=== PATIENT | male | born 1995 | race American Indian/Alaskan Native ===

== ENCOUNTER 2017-02-22 21:39 | Emergency (ER) | payer SELFPAY ==
[2017-02-22 22:54] LABS: Basophils % (Auto) 0.5 % (0.0-1.8); Eosinophils % (Auto) 2.7 % (0.0-4.3); Hematocrit 48.9 % (35.5-45.6); Hemoglobin 15.7 gm/dl (11.8-15.2); Mean Corpuscular HGB Conc 32 % (32-34); Mean Corpuscular Hemoglobin 27 pg (28-32); Mean Corpuscular Volume 83 fl (84-94); Platelet Count 267 K/mm3 (140-440); Red Blood Count 5.93 M/mm3 (3.65-5.03); Red Cell Distribution Width 14.1 % (13.2-15.2); White Blood Count 8.8 K/mm3 (4.5-11.0)
[2017-02-22 23:09] LABS: Anion Gap 21 mmol/L; Blood Urea Nitrogen 10 mg/dL (9-20); Calcium 9.5 mg/dL (8.4-10.2); Carbon Dioxide 25 mmol/L (22-30); Chloride 98.4 mmol/L (98-107); Glucose 86 mg/dL (75-100); Potassium 4.1 mmol/L (3.6-5.0); Sodium 140 mmol/L (137-145)
[2017-02-23 02:39] VITALS: BP 121/78
[2017-02-23] MEDS ORDERED: ATROVENT IH ONE ×2 (04:58→05:07)
[2017-02-23] MEDS ORDERED: PROVENTIL IH ONE ×2 (04:58→05:06)
--- NOTE | 2017-02-23 05:50 | Emergency Department Report ---
ED Chest Pain HPI - General Chief Complaint: Chest Pain Stated Complaint: SOB, CHEST TIGHTNESS, THROAT PAIN Time Seen by Provider: 02/23/17 02:46 Source: patient Mode of arrival: Ambulatory Limitations: No Limitations - History of Present Illness Initial Comments: 21 yo male with a past medical history childhood asthma presents to the with complaints of chest tightness and shortness of breath. Symptoms are intermittent for the last week. No aggravating or alleviating factors reported. Patient states he does smoke Black and milds but quit 1 week ago. He denies nausea, vomiting, cough, cold symptoms, recent travel, history of PE/ DVT, or cocaine use. Patient denies that he has audible wheezing and does not have a albuterol inhaler currently. Severity scale (0 -10): 4 - Related Data Previous Rx's Medication Instructions Recorded Last Taken Type ALBUTEROL Inhaler [ProAir HFA 2 puff IH QID PRN #1 inhalation 02/23/17 Unknown Rx Inhaler] Inhaler, Assist Devices [Space 1 each MC PRN #1 spacer 02/23/17 Unknown Rx Chamber Plus] Allergies Allergy/AdvReac Type Severity Reaction Status Date / Time No Known Allergies Allergy Verified 02/22/17 22:06 Heart Score - HEART Score History: Slightly suspicious EKG: Normal Age: < 45 Risk factors: No known risk factors Troponin: < normal limit HEART Score: 0 ED Review of Systems ROS: Stated complaint: SOB, CHEST TIGHTNESS, THROAT PAIN Other details as noted in HPI Comment: All other systems reviewed and negative Other: Constitutional: No fevers chills Eyes: No eye pain visual changes ENT: No ear pain or throat pain Neck: Denies pain Respiratory: Denies cough wheezing Cardiovascular: Denies palpitations, syncope GI: Denies abdominal pain, nausea, vomiting, diarrhea : Denies dysuria Musculoskeletal: Denies back pain Skin: Denies rash, lesions, erythema Neurologic: Denies headache, numbness, weakness Psychiatric: Denies suicidal ideation, hallucinations ED Past Medical Hx - Past Medical History Previous Medical History?: No - Surgical History Past Surgical History?: No - Social History Smoking Status: Never Smoker Substance Use Type: None - Medications Home Medications: Home Medications Medication Instructions Recorded Confirmed Last Taken Type ALBUTEROL Inhaler [ProAir HFA 2 puff IH QID PRN #1 inhalation 02/23/17 Unknown Rx Inhaler] Inhaler, Assist Devices [Space 1 each PRN #1 spacer 02/23/17 Unknown Rx Chamber Plus] ED Physical Exam - General Limitations: No Limitations - Other Other exam information: General: No limitations, patient is alert in no acute distress Head exam: Atraumatic, normocephalic Eyes exam: Normal appearance, ENT: Moist mucous membrane, normal oropharynx Neck exam: Normal inspection, full range of motion, no meningismus nontender Respiratory exam: Clear to auscultation bilateral, no wheezes, rales, crackles Cardiovascular: Normal rate and rhythm, normal heart sounds, chest wall nontender Abdomen: Soft, nondistended, and nontender, with normal bowel sounds, no rebound, or guarding Extremity: Full range of motion normal inspection no deformity or edema Back: Normal Inspection, full range of motion, no tenderness, no calf tenderness or edema Neurologic: Alert, oriented x3, cranial nerves intact, no motor or sensory deficit Psychiatric: normal affect, normal mood Skin: Warm, dry, intact ED Course Vital Signs 02/22/17 02/23/17 22:07 02:35 Temperature 98 F 98.2 F Pulse Rate 88 60 Respiratory 16 18 Rate Blood Pressure 132/86 Blood Pressure 121/78 [Left] O2 Sat by Pulse 100 100 Oximetry - Reevaluation(s) Reevaluation #1: 02/23/17 05:48 Patient's initial peak flow was 275 with predicted of 500. After receiving albuterol 5 mg and Atrovent 1 mg peak flow is now 500 and patient reports feeling much better. He states this chest tightness and shortness of breath have now resolved. DONTRELL score - Dontrell Score Age > 65: (0) No Aspirin use within the Past 7 Days: (0) No 3 or more CAD Risk Factors: (0) No 2 or more Angina events in past 24 hrs: (0) No Known CAD with more than 50% Stenosis: (0) No Elevated Cardiac Markers: (0) No ST Deviation Greater than 0.5mm: (0) No DONTRELL Score: 0 ED Medical Decision Making - Lab Data Result diagrams: 02/22/17 22:25 02/22/17 22:25 Lab Results 02/22/17 02/22/17 02/23/17 Range/Units 22:25 22:25 00:58 WBC 8.8 (4.5-11.0) K/mm3 RBC 5.93 H (3.65-5.03) M/mm3 Hgb 15.7 H (11.8-15.2) gm/dl Hct 48.9 H (35.5-45.6) % MCV 83 L (84-94) fl MCH 27 L (28-32) pg MCHC 32 (32-34) % RDW 14.1 (13.2-15.2) % Plt Count 267 (140-440) K/mm3 Lymph % (Auto) 35.7 H (13.4-35.0) % [place] % (Auto) 8.2 H (0.0-7.3) % Eos % (Auto) 2.7 (0.0-4.3) % Baso % (Auto) 0.5 (0.0-1.8) % Lymph # 3.1 (1.2-5.4) K/mm3 [place] # 0.7 (0.0-0.8) K/mm3 Eos # 0.2 (0.0-0.4) K/mm3 Baso # 0.0 (0.0-0.1) K/mm3 Seg Neutrophils % 52.9 (40.0-70.0) % Seg Neutrophils # 4.7 (1.8-7.7) K/mm3 Sodium 140 (137-145) mmol/L Potassium 4.1 (3.6-5.0) mmol/L Chloride 98.4 (98-107) mmol/L Carbon Dioxide 25 (22-30) mmol/L Anion Gap 21 mmol/L BUN 10 (9-20) mg/dL Creatinine 0.8 (0.8-1.5) mg/dL Estimated GFR > 60 ml/min BUN/Creatinine Ratio 12.50 % Glucose 86 (75-100) mg/dL Calcium 9.5 (8.4-10.2) mg/dL Troponin T < 0.010 < 0.010 (0.00-0.029) ng/mL - EKG Data -: EKG Interpreted by Me (nsr rate 69, no stemi) - EKG Data 02/23/17 05:51 Repeat EKG unchanged. Sinus no signs of ST elevation or T inv - Radiology Data Radiology results: image reviewed (chest x-ray PA and lateral, no acute finding) - Medical Decision Making Patient's symptoms likely secondary to asthma. Positive improvement of symptoms with nebulizers. Albuterol will be prescribed. Outpatient follow-up will be encouraged - Differential Diagnosis asthma, PE, atypical chest pain, pneumothorax, pleurisy, [place] Critical Care Time: No Critical care attestation.: If time is entered above; I have spent that time in minutes in the direct care of this critically ill patient, excluding procedure time. ED Disposition Clinical Impression: Acute asthma exacerbation Disposition: TO HOME OR SELFCARE Is pt being admited?: No Does the pt Need Aspirin: No Condition: Stable Instructions: Asthma (ED) Additional Instructions: Use inhaler as needed. I recommend that you continue to not smoke. Follow-up with primary care doctor or clinic. Prescriptions: ALBUTEROL Inhaler [ProAir HFA Inhaler] 2 puff IH QID PRN #1 inhalation PRN Reason: Shortness Of Breath Inhaler, Assist Devices [Space Chamber Plus] 1 each MC PRN #1 spacer Referrals: [facility] [Provider Group] - 3-5 Days RUBINA CELIS MD [Staff Physician] - 3-5 Days Time of Disposition: 05:51
--- NOTE | 2017-02-23 09:26 | XRay Report ---
Chest 2 views: History: Chest pain. Findings: Normal cardiomediastinal silhouette. Trachea is midline. No consolidation, pneumothorax or pleural effusion. Impression: No acute cardiopulmonary findings.
== END 2017-02-23 06:18 | disposition home or self-care (01) ==
LOC: ED 21:39
DX: J45.901 Unspecified asthma with (acute) exacerbation (principal)
CPT/HCPCS: 36415; 71020; 80048; 84484; 85025; 93005; 93010; 94640; 99284

== ENCOUNTER 2017-12-28 20:57 | Emergency (ER) | payer SELFPAY ==
[2017-12-28 21:48] VITALS: BP 117/72
[2017-12-28] MEDS ORDERED: ZOFRAN ODT ONE (22:06)
[2017-12-28] MEDS ORDERED: ZOFRAN ODT PO ONE (22:11)
[2017-12-28 22:16] LABS: Basophils # (Auto) 0.1 K/mm3 (0.0-0.1); Basophils % (Auto) 0.6 % (0.0-1.8); Eosinophils # (Auto) 0.1 K/mm3 (0.0-0.4); Eosinophils % (Auto) 0.7 % (0.0-4.3); Hemoglobin 14.5 gm/dl (11.8-15.2); Lymphocytes # (Auto) 2.5 K/mm3 (1.2-5.4); Lymphocytes % (Auto) 29.3 % (13.4-35.0); Mean Corpuscular HGB Conc 33 % (32-34); Mean Corpuscular Hemoglobin 27 pg (28-32); Mean Corpuscular Volume 82 fl (84-94); Monocytes # (Auto) 0.6 K/mm3 (0.0-0.8); Monocytes % (Auto) 6.7 % (0.0-7.3); Platelet Count 261 K/mm3 (140-440); Red Blood Count 5.33 M/mm3 (3.65-5.03); Red Cell Distribution Width 14.4 % (13.2-15.2)
[2017-12-28 22:29] LABS: BUN/Creatinine Ratio 10; Blood Urea Nitrogen 8 mg/dL (9-20); Calcium 9.7 mg/dL (8.4-10.2); Hemolysis Index 10
== END 2017-12-28 21:57 | disposition left against medical advice (07) ==
LOC: ED 20:57
DX: R42 Dizziness and giddiness (principal); R11.11 Vomiting without nausea; Z53.21 Procedure and treatment not carried out due to patient leaving prior to being seen by health care provider
CPT/HCPCS: 36415; 80048; 85025; 93005; 93010; Q0162

== ENCOUNTER 2018-08-27 00:22 | Emergency (ER) | payer OTHER ==
[2018-08-27 00:29] VITALS: BP 121/75
[2018-08-27] MEDS ORDERED: NACL 0.9% 1000 ML 1,000 ML IV ONE ×2 (00:29→05:55)
[2018-08-27 00:41] LABS: Basophils % (Auto) 0.3 % (0.0-1.8); Eosinophils # (Auto) 0.2 K/mm3 (0.0-0.4); Eosinophils % (Auto) 1.4 % (0.0-4.3); Hematocrit 45.7 % (35.5-45.6); Hemoglobin 15.7 gm/dl (11.8-15.2); Lymphocytes # (Auto) 1.4 K/mm3 (1.2-5.4); Lymphocytes % (Auto) 8.4 % (13.4-35.0); Mean Corpuscular HGB Conc 34 % (32-34); Mean Corpuscular Volume 82 fl (84-94); Monocytes % (Auto) 6.2 % (0.0-7.3); Platelet Count 229 K/mm3 (140-440); Red Blood Count 5.56 M/mm3 (3.65-5.03); Red Cell Distribution Width 14.2 % (13.2-15.2)
[2018-08-27 00:59] LABS: Alanine Aminotransferase 26 units/L (7-56); Albumin 4.8 g/dL (3.9-5); BUN/Creatinine Ratio 18; Blood Urea Nitrogen 14 mg/dL (9-20); Hemolysis Index 12
[2018-08-27] MEDS ORDERED: ZOFRAN IV ONE (04:00)
--- NOTE | 2018-08-27 04:24 | Emergency Department Report ---
ED Abdominal Pain HPI - General Chief Complaint: Nausea/Vomiting/Diarrhea Stated Complaint: N/V Time Seen by Provider: 08/27/18 03:57 Source: patient Mode of arrival: Ambulatory Limitations: No Limitations - History of Present Illness Initial Comments: 23-year-old male presents to the emergency room AND vomiting that started about p.m. Patient reports that he has family members with similar symptoms. Patient admits to nausea and vomiting greater than 7 times. Patient report he last vomited 20 minutes prior to me evaluating. Patient reports he last ate about 5 PM. He is able to drink Gatorade denies any diarrhea. He admits to abdominal pain only with vomiting. Hhe denies smoking any cannabis today. He reports a past medical history of asthma currently takes no medications on a daily basis and has no known drug allergies. -: During the night Time: 20:00 Location: diffuse Radiation: none Migration to: no migration Severity scale (0 -10): 7 Quality: stabbing, sharp Consistency: intermittent Improves With: nothing Worsens With: vomiting Context: sick contacts Associated Symptoms: nausea, vomiting. denies: diarrhea, constipation, dysuria - Related Data Previous Rx's Medication Instructions Recorded Last Taken Type ALBUTEROL Inhaler (OR & NICU) 2 puff IH QID PRN #1 inhalation 02/23/17 Unknown Rx [ProAir HFA Inhaler] Inhaler, Assist Devices [Space 1 each MC PRN #1 spacer 02/23/17 Unknown Rx Chamber Plus] Allergies Allergy/AdvReac Type Severity Reaction Status Date / Time No Known Allergies Allergy Verified 02/22/17 22:06 ED Review of Systems ROS: Stated complaint: N/V Other details as noted in HPI Comment: All other systems reviewed and negative Gastrointestinal: abdominal pain, nausea, vomiting ED Past Medical Hx - Past Medical History Previous Medical History?: Yes Hx Arthritis: Yes - Surgical History Past Surgical History?: No - Social History Smoking Status: Never Smoker Substance Use Type: None - Medications Home Medications: Home Medications Medication Instructions Recorded Confirmed Last Taken Type ALBUTEROL Inhaler (OR & NICU) 2 puff IH QID PRN #1 inhalation 02/23/17 Unknown Rx [ProAir HFA Inhaler] Inhaler, Assist Devices [Space 1 each MC PRN #1 spacer 02/23/17 Unknown Rx Chamber Plus] ED Physical Exam - General Limitations: No Limitations General appearance: alert, in no apparent distress - Head Head exam: Present: atraumatic, normocephalic - Eye Eye exam: Present: EOMI - ENT ENT exam: Present: mucous membranes moist - Neck Neck exam: Present: normal inspection - Respiratory Respiratory exam: Present: normal lung sounds bilaterally. Absent: respiratory distress - Cardiovascular Cardiovascular Exam: Present: regular rate, normal rhythm. Absent: systolic murmur, diastolic murmur, rubs, gallop - GI/Abdominal GI/Abdominal exam: Present: soft, normal bowel sounds. Absent: distended, tenderness - Extremities Exam Extremities exam: Present: normal inspection, full ROM - Back Exam Back exam: Present: normal inspection, full ROM - Neurological Exam Neurological exam: Present: alert, oriented X3 - Psychiatric Psychiatric exam: Present: normal affect, normal mood - Skin Skin exam: Present: warm, dry, intact, normal color. Absent: rash ED Course Vital Signs 08/27/18 00:26 Temperature 98.0 F Pulse Rate 90 Respiratory 18 Rate Blood Pressure 121/75 O2 Sat by Pulse 100 Oximetry ED Medical Decision Making - Lab Data Result diagrams: 08/27/18 00:33 08/27/18 00:33 - Radiology Data CT abdomen and pelvis with contrast impression no acute intra-abdominal abnormalities. - Medical Decision Making Patient has been evaluated by this provider in fast track. CBC CMP and CT with contrast has been ordered. Patient has a elevated white count of 16.7 and elevated glucose of 123. Patient will be giveniv normal saline and IV zofran Critical care attestation.: If time is entered above; I have spent that time in minutes in the direct care of this critically ill patient, excluding procedure time. ED Disposition Clinical Impression: Nausea and vomiting Qualifiers: Vomiting type: unspecified Vomiting Intractability: intractable Qualified Code(s): R11.2 - Nausea with vomiting, unspecified Disposition: DC-01 TO HOME OR SELFCARE Is pt being admited?: No Does the pt Need Aspirin: No Condition: Stable Instructions: Acute Nausea and Vomiting (ED) Additional Instructions: Please increase your fluid intake and thinks her diet as tolerated. Follow up with a primary care provider if his symptoms persist or gets worse. I have listed their information below for your convenience. Referrals: CITLALLI SUMNER MD [Primary Care Provider] - 3-5 Days [facility] [Provider Group] - 3-5 Days Forms: Work/School Release Form(ED), Accompanied Note
--- NOTE | 2018-08-27 05:16 | Cat Scan Report ---
PROCEDURE: CT ABDOMEN PELVIS W CON TECHNIQUE: Computerized axial tomography of the abdomen and pelvis was performed after the IV inject ion of iodinated nonionic contrast. CT DOSE LENGTH PRODUCT: mGycm HISTORY: abd pain, n/v wbc 16.7 COMPARISONS: None . FINDINGS: Visualized lower thorax: No significant abnormality. Liver: Normal size and attenuation. Spleen: Normal size and attenuation. Gallbladder and biliary system: Normal. Pancreas: Normal. Adrenals: Normal. Kidneys: Normal. GI tract: There is no bowel obstruction, colitis or enteritis. The appendix is normal. . Lymph nodes and mesentery: Normal. Vasculature: Normal.. Bladder: Normal. Reproductive organs: Normal. Peritoneum: There is no ascites or free air, abscess or adenopathy.. Musculoskeletal structures: No significant abnormality. IMPRESSION: There is no acute intra-abdominal abnormality. . This document is electronically signed by Naeem Lucia MD., August 27 2018 05:13:44 AM ET
== END 2018-08-27 06:27 | disposition home or self-care (01) ==
LOC: ED 00:22
DX: R10.84 Generalized abdominal pain (principal); R11.2 Nausea with vomiting, unspecified; M19.90 Unspecified osteoarthritis, unspecified site
CPT/HCPCS: 36415; 74177; 80053; 83690; 85025; 96361; 96374; 99284; J2405; Q9967